=== PATIENT | female | born 2000 | race Caucasian/White ===

== ENCOUNTER 2025-02-28 15:49 | Emergency (ER) | payer MEDICAID ==
[~2025-02-28] VITALS: Ht 157.5 cm; Wt 53.0 kg
[2025-02-28 15:58] VITALS: BP 112/65; TEMP 36.6; O2SAT 100
[2025-02-28 16:09] VITALS: PULSE 74; RESP 18; O2SAT 99
== END 2025-02-28 21:25 | disposition left against medical advice (07) ==
LOC: ER 16:16
DX: R21 Rash and other nonspecific skin eruption (principal)
CPT/HCPCS: 99282